=== PATIENT | female | born 1990 | race Caucasian/White ===

== ENCOUNTER 2016-08-09 19:07 | Emergency (ER) | payer OTHER ==
[~2016-08-09] VITALS: Ht 165.1 cm; Wt 96.4 kg
[2016-08-09 19:12] VITALS: BP 138/101; PULSE 87; RESP 16; O2SAT 96
--- NOTE | 2016-08-09 19:43 | ED.REPORT ---
HPI-Chest Pain Under 40 Date of Service Aug 09, 2016 ED Provider: Ben Paige DO A 26 year old female with a history of monitored borderline hypertension presents to the ED complaining of sharp chest pain accompanied by occasional nausea. The pain began intermittently one month ago but was constant and particularly severe at work today. The pt denies coughing, vomiting, breast pain or discharge, or diarrhea. [facility] and prescribed Zantac, which has not seemed to help. Tums and Ranidine have not relieved her symptoms either. The pt denies a history of smoking. She is presently being monitored to evaluate whether medication will be required for her hypertension. Nursing Notes Stated Complaint: CHEST PAIN Chief Complaint: Chest Pain Nursing Notes Reviewed: Yes Allergies: Coded Allergies: No Known Allergies (Unverified Allergy, Unknown, 08/09/16) General Time Seen by MD: 19:43 Chief Complaint Chest pain Hx Obtained From: Patient Arrived By: Walk-in Sudden in Onset?: No Onset Occurred: More than a week ago... Symptom Duration: Since onset Recent Healthcare: No recent hospitalization, Recent doctor visit Similar Sx Previous: No Past Medical History Past Medical History borderline hypertension, presently being monitored Past Surgical History none reported Smoking History Never Smoker Social History Other Social History: Good social support, Ambulatory Status Independent Review of Systems Review of Systems Note: denies breast pain or discharge Constitutional: Denies: Fever Respiratory: Denies: Non-productive cough, Shortness of breath Cardiovascular: Reports: Chest pain GI: Reports: Nausea, Denies: Abdominal pain, Diarrhea, Vomiting Musculoskeletal: Denies: Back pain, Neck pain Skin: Denies Rash Complete sys rev & neg: except as marked. Physical Exam Initial Vital Signs Vital Signs (First) Date Time Temp Pulse Resp B/P Pulse Ox O2 Delivery O2 Flow Rate FiO2 08/09/16 19:12 36.8 87 16 138/101 96 Room Air Initial VS: Reviewed General/Constitutional: Awake, Alert Respiratory / Chest: Atraumatic, Breath sounds NL, Breath sounds = bilat, No respiratory distress tender chest wall Cardiovascular: Heart rate NL, Regular rhythm, Heart sounds NL Neck: Atraumatic, Supple, Full range of motion Abdomen: Atraumatic, Soft, Non-tender Back: Atraumatic, Full range of motion Lower Extremity / Pelvis / MS: Atraumatic, Full range of motion Skin: Atraumatic, Color NL, No rash, Warm, Dry Neurologic: Oriented X3, Speech NL, No motor deficits, No sensory deficits Psychiatric: Affect NL, Mood NL Head / Eyes: Atraumatic, Normocephalic, PERRL, EOMI ENT: Atraumatic, Airway patent, Mucous membranes moist Upper Extremity / MS: Atraumatic, Full range of motion Interpretation & Diagnostics Lab Results Interpretation Result Diagram: 08/09/16194408/09/161944 Test 08/09/16 19:45 08/09/16 22:08 White Blood Count 7.0th/mm3 (3.8-10.1) Red Blood Count 4.34mil/mm3 (3.90-5.20) Hemoglobin 13.5g/dL (12.0-15.6) Hematocrit 40.4% (35.0-46.0) Mean Corpuscular Volume 93.1fL (81-100) Mean Corpuscular Hemoglobin 31.1pg (27.0-35.0) Mean Corpuscular Hemoglobin Concent 33.4% (32.0-37.0) Red Cell Distribution Width 12.0% (12.3-15.4) Platelet Count 288bil/L (150-400) Neutrophils (%) (Auto) 50.5% (40-74) Lymphocytes (%) (Auto) 39.6% (14-46) Monocytes (%) (Auto) 7.9% (4-12) Eosinophils (%) (Auto) 1.6% (0-5) Basophils (%) (Auto) 0.3% (0-3) D-Dimer < 0.5mg/L (<0.50) Sodium Level 134mEq/L (134-144) Potassium Level 3.8mEq/L (3.5-5.2) Chloride Level 96mEq/L (97-108) Carbon Dioxide Level 23mmol/L (18-29) Blood Urea Nitrogen 9mg/dL (6-20) Creatinine 0.65mg/dL (0.57-1.00) Estimat Glomerular Filtration Rate 157mL/min (>59) Glucose Level 90mg/dL (60-99) Calcium Level 9.4mg/dL (8.5-10.1) Magnesium Level 1.9mg/dL (1.6-2.6) Total Bilirubin 0.2mg/dL (0.0-1.2) Aspartate Amino Transf (AST/SGOT) 23U/L (0-50) Alanine Aminotransferase (ALT/SGPT) 29U/L (0-32) Alkaline Phosphatase 45U/L (25-150) Total Protein 7.6g/dL (6.4-8.4) Albumin 4.4g/dL (3.4-5.0) Hold Mullen Top Tube Received (Received) Troponin T 0.010ug/L (0.0-0.011) Pulse Oximetry Interpretation Pulse Oximetry Interpretation: 96% on room air Pulse Oximetry: Pulse Ox normal ECG Interpretation ECG Interpretation: normal sinus rhythm with a rate of 63 Time: 19:55 Interpreted by: ED physician ECG Interpretation: normal sinus rhythm with a rate of 64 Time: 22:14 Interpreted by: ED physician X-Ray Chest Interpretation Chest Xray Interpretation: IMPRESSION: No acute disease Dictated by: Khang Green M.D. on 08/09/2016 at 20:59 Approved by: Khang Green M.D. on 08/09/2016 at 21:00 Interpretation / Wet Read by: Interpret - Radiologist Re-Eval/Medical Decision Source of Hx: Old records Re-Evaluation/Progress #1: Time of Eval: 21:26 Re-Evaluation/Progress Note: Pt rechecked, who is feeling significantly better following pain medications. The plan for additional laboratory testing is discussed. Re-Evaluation/Progress #2: Time of Eval: 22:47 Patient Status: Condition improved Re-Evaluation/Progress Note: Pt rechecked, who feels prepared for discharge. She is informed of her lab results, radiology results, and the plan for discharge. The pt understands and agrees with the plan. All questions are addressed at this time. Counseled Regarding: Diagnosis, Lab results, Need for follow-up, When/why to return to ED Discharge & Departure Primary Impression: Non-cardiac chest pain Disposition: Home Discharge Condition All VS Reviewed: Yes Condition: Stable Patient Instructions: Chest Pain (ED) Additional Instructions: The 2 EKGs were normal. The heart blood tests were normal. The blood clot blood test was normal. The chest x-ray was normal. The pain seems to be in your chest wall. I would like you to take 1 Vicoprofen every 6 hours as needed for severe pain. Continue with your ranitidine. Set up a follow-up with your primary care physician. Call tomorrow. If the pain persists you may need further testing. Do not drive or drink alcohol or take any other anti- inflammatories while taking the Vicoprofen. Do not hesitate to return if any problems or any worsening symptoms. Referrals: [facility] [place] Att[facility] Portions of this note were transcribed by Taylor Sharp. I, Dr. Paige personally performed the history, physical exam and medical decision-making; I reviewed and confirmed the accuracy of the information in the transcribed note. Signed by: Basilia Ny, 08/09/2016 and [id number]. copies to: [facility] Ben Paige DO Aug 09, 2016 19:43 TAYLOR SHARP Aug 09, 2016 19:59
[2016-08-09 19:54] LABS: BASOPHILS % (AUTO) 0.3 % (0-3); EOSINOPHILS % (AUTO) 1.6 % (0-5); MONOCYTES % (AUTO) 7.9 % (4-12); Mean Corpuscular Hemoglobin 31.1 pg (27.0-35.0); Mean Corpuscular Volume 93.1 fL (81-100); NEUTROPHILS % (AUTO) 50.5 % (40-74); Platelet Count 288 bil/L (150-400)
[2016-08-09 20:19] LABS: TROPONIN T < 0.010 ug/L (0.0-0.011)
[2016-08-09 20:28] LABS: Magnesium 1.9 mg/dL (1.6-2.6)
[2016-08-09] MEDS ORDERED: HYDROcodone-APAP 5-325 mg Tablet PO ONE (20:30)
--- NOTE | 2016-08-09 21:01 | DRSVH ---
PROCEDURE: X-RAY CHEST, TWO VIEWS ([id number]) INDICATIONS: chest pain, upper TECHNIQUE: 2 views of the chest were acquired. COMPARISON: None. FINDINGS: Surgical changes and devices: None. Lungs and pleura: No pleural effusions or pneumothorax. Lungs are clear. Mediastinum: Mediastinal contours are normal. Heart size is normal. Bones and chest wall: No suspicious bony abnormalities. Soft tissues appear unremarkable. IMPRESSION: No acute disease Dictated by: Khang Green M.D. on 08/09/2016 at 20:59 Approved by: Khang Green M.D. on 08/09/2016 at 21:00
[2016-08-09 21:46] VITALS: BP 131/80; PULSE 71; RESP 18; O2SAT 95
[2016-08-09] MEDS ORDERED: _HYDROcodone/APAP 5-325 mg Tablet PO PRN (22:20)
[2016-08-09 22:59] VITALS: BP 135/67; PULSE 80; RESP 18; O2SAT 98
== END 2016-08-09 23:03 | disposition home or self-care (01) ==
LOC: SED 19:07
DX: R07.89 Other chest pain (principal); R03.0 Elevated blood-pressure reading, without diagnosis of hypertension; R11.0 Nausea